=== PATIENT | female | born 1955 | race Two or more races ===

== ENCOUNTER 2024-01-20 08:46 | Emergency (ER) | payer OTHER ==
[~2024-01-20] VITALS: Ht 160 cm; Wt 81.6 kg
[~2024-01-20 08:46] MED LIST: LEVAQUIN750 MG PO; TESSALON PERLE100 M1 PO
[2024-01-20] MEDS ORDERED: ATACAND16 MG PO (09:26)
[2024-01-20] MEDS ORDERED: SINGULAIR 5MG5 MG PO (09:26)
[2024-01-20] MEDS ORDERED: CLARITIN10 M1 PO (09:27)
[2024-01-20] MEDS ORDERED: ONDANSETRON HCL 2 MG/ML VIAL IV STA (09:59)
[2024-01-20] MEDS ORDERED: MECLIZINE HCL 25 MG TABLET PO STA (10:00)
[2024-01-20 11:05] LABS: HEMATOCRIT 43.1 % (36.0-45.00); HEMOGLOBIN 14.4 g/dL (12.0-15.00); MEAN CELL VOLUME 90.1 fL (80.00-100.00); MEAN CORPUSCULAR HEMOGLOBIN 30.2 pg (27.00-32.0); MEAN CORPUSCULAR HGB CONC 33.5 g/dl (32.0-36.0); PLATELET COUNT 212 K/uL (150-450); RED BLOOD COUNT 4.78 M/uL (4.00-6.00); RED CELL DISTRIBUTION WIDTH 15.2 % (11.5-14.5)
[2024-01-20 11:19] LABS: CALCIUM 9.4 mg/dL (8.5-10.1); CREATININE SERUM 0.78 mg/dL (0.55-1.02); GFR 73.01; POTASSIUM 3.88 mEq/L (3.5-5.1)
== END 2024-01-20 12:05 | disposition home or self-care (01) ==
LOC: ER 08:46
PROVIDERS: General Practice
DX: R42 Dizziness and giddiness (principal); I10 Essential (primary) hypertension; Z86.16 Personal history of COVID-19
CPT/HCPCS: 36415; 70450; 96365; 99284; J2405

== ENCOUNTER 2024-10-31 18:48 | Inpatient (IN) | payer OTHER ==
[~2024-10-31] VITALS: Ht 160 cm; Wt 81.6 kg
[~2024-10-31 18:48] MED LIST changes: +ATACAND16 MG PO; +CLARITIN10 M1 PO; +SINGULAIR 5MG5 MG PO
--- NOTE | 2024-10-31 19:01 | NUR ---
SE RECIBE PTE FEMENINA ALERTA Y ORIENTADA X3 REFIERE VOMITOS X8, NAUSEAS, ESCALOFRIOS Y SUDORACION LUEGO DE INGERIR JACQUELINE TOSTADA CON TOMATE DE VARIOS HAGER. SE MARGUERITE S/V Y SE UBICA.
[2024-10-31] MEDS ORDERED: HYOSCYAMINE SULFATE 0.125 MG TAB.SUBL SL ONE (19:45)
[2024-10-31] MEDS ORDERED: 0.9 % SODIUM CHLORIDE 1,000 ML IV ONE (19:45)
[2024-10-31] MEDS ORDERED: ONDANSETRON HCL 2 MG/ML VIAL IV ONE (19:45)
[2024-10-31] MEDS ORDERED: FAMOtidine 10 MG/ML (4ML VIAL) IV PUSH ONE (19:45)
--- NOTE | 2024-10-31 20:14 | NUR ---
PTE ALERTA Y ORIENTADA X3 ES EVALUADA POR EL DR. JUNG. SE ORIENTA SOBRE TRATAMIENTO, VERBALIZA ENTENDER. SE CANALIZA, SE COLECTAN MUESTRAS DE LAB Y SE ADMINISTRA MEDICAMENTO WOLF ORDEN MEDICA BAJO MEDIDAS ASEPTICAS.
[2024-10-31 20:37] LABS: HEMATOCRIT 46.9 % (36.0-45.00); HEMOGLOBIN 15.6 g/dL (12.0-15.00); MEAN CELL VOLUME 90.2 fL (80.00-100.00); MEAN CORPUSCULAR HEMOGLOBIN 30.1 pg (27.00-32.0); MEAN CORPUSCULAR HGB CONC 33.4 g/dl (32.0-36.0); PLATELET COUNT 249 K/uL (150-450); RED CELL DISTRIBUTION WIDTH 15.6 % (11.5-14.5)
[2024-10-31 20:39] LABS: ALBUMIN 3.7 gm/dL (3.4-5.0); BILIRUBIN TOTAL 1.37 mg/dL (0.3-1.2); CALCIUM 9.4 mg/dL (8.5-10.1); CREATININE SERUM 0.82 mg/dL (0.55-1.02); GFR 68.92; GLOBULINA 4.1 G/DL (2.4-3.5); POTASSIUM 4.32 mEq/L (3.5-5.1); TOTAL PROTEIN 7.8 gm/dL (6.4-8.2)
--- NOTE | 2024-10-31 23:16 | NUR ---
PACIENTE ALERTA Y ORIENTADA X3. SE MANTIENE EN CAMA A NIVEL DE PISO JUNTO CON BARRANDAS ELEVADAS. PENDIENTE A RESULTADOS DE SONOGRAMA Y PENDIENTE A REALIZAR CT.
[2024-10-31] MEDS ORDERED: PIPERACILLIN/TAZOBACTAM SODIUM 3.375 GM VIAL IV ONE (23:45)
--- NOTE | 2024-10-31 23:50 | NUR ---
PENDIENTE A CONSULTA CON DR. UNDERWOOD DE MEDICINA INTERNA.
[2024-11-01] MEDS ORDERED: ONDANSETRON HCL 4 MG in 0.9 % SODIUM CHLORIDE 50 ML IV PRN (00:15)
[2024-11-01] MEDS ORDERED: 0.9 % SODIUM CHLORIDE 1,000 ML IV SCH (00:15)
[2024-11-01] MEDS ORDERED: MORPHINE SULFATE 4 MG/ML CARTRIDGE IV PRN (00:15)
[2024-11-01] MEDS ORDERED: PIPERACILLIN/TAZOBACTAM SODIUM 3.375 GM in DEXTROSE 5 % IN WATER 100 ML IV SCH (06:00)
[2024-11-01 08:00] VITALS: BP 110/64; O2SAT 95
[2024-11-01] MEDS ORDERED: LORazepam 1 MG TABLET PO NR (08:00)
[2024-11-01 08:41] LABS: URINE APPEARANCE Clear; URINE BILIRRUBIN Negative (NEGATIVE); URINE BLOOD Negative; URINE COLOR Dark Yellow; URINE GLUCOSE Negative (NEGATIVE); URINE KETONE 15 (NEGATIVE); URINE LEUKOCYTE Trace; URINE NITRATE Negative; URINE PROTEIN 30 (NEGATIVE)
[2024-11-01 08:55] LABS: URINE BACTERIA 260.1 uL (0.0-1933); URINE EPITHELIAL CELLS 51.2 uL (0.0-38.8); URINE RBC 8.9 uL (0.0-20.8); URINE WBC 200.9 uL (0.0-23.2)
[2024-11-01] MEDS ORDERED: CANDESARTAN CILEXETIL 16 MG TABLET PO SCH (09:00)
[2024-11-01] MEDS ORDERED: FAMOTIDINE/PF 20 MG in 0.9 % SODIUM CHLORIDE 8 ML IV PUSH SCH (09:00)
[2024-11-01 16:00] VITALS: BP 125/65; O2SAT 95
[2024-11-01] MEDS ORDERED: PIPERACILLIN/TAZOBACTAM SODIUM 4.5 GM in 0.9 % SODIUM CHLORIDE 100 ML IV SCH (18:00)
[2024-11-02 00:10] VITALS: BP 126/62; O2SAT 100
[2024-11-02 07:04] LABS: HEMATOCRIT 46.9 % (36.0-45.00); MEAN CELL VOLUME 90.3 fL (80.00-100.00); MEAN CORPUSCULAR HEMOGLOBIN 30.8 pg (27.00-32.0); MEAN CORPUSCULAR HGB CONC 34.1 g/dl (32.0-36.0); PLATELET COUNT 257 K/uL (150-450); RED BLOOD COUNT 5.19 M/uL (4.00-6.00); RED CELL DISTRIBUTION WIDTH 15.8 % (11.5-14.5)
[2024-11-02 07:10] LABS: INR 1.34; PARTIAL THROMBOPLASTIN TIME 26.4 SECONDS (22.0-34.0); PROTHROMBIN TIME 14.3 SECONDS (9.0-11.5)
[2024-11-02 07:36] LABS: BILIRUBIN TOTAL 1.54 mg/dL (0.3-1.2); BILIRUBIN,CONJUGATED 0.66 mg/dL (0.0-0.2); BILIRUBIN,UNCONJUGATED 0.88 mg/dL (0.0-0.6); TOTAL PROTEIN 6.2 gm/dL (6.4-8.2)
[2024-11-02 08:00] VITALS: BP 112/63; O2SAT 95
[2024-11-02 08:30] LABS: CHOL HDL RATIO 3.1 (0-5.0)
[2024-11-02 08:34] LABS: C-REACTIVE PROTEIN 10.2 MG/DL (0.00-0.29)
[2024-11-02] MEDS ORDERED: MORPHINE SULFATE 4 MG/ML CARTRIDGE IV PRN (10:52)
[2024-11-02 16:00] VITALS: BP 125/68; O2SAT 95
[2024-11-03 00:10] VITALS: BP 136/77; O2SAT 96
[2024-11-03 07:46] LABS: HEMATOCRIT 40.1 % (36.0-45.00); HEMOGLOBIN 13.4 g/dL (12.0-15.00); MEAN CELL VOLUME 90.6 fL (80.00-100.00); MEAN CORPUSCULAR HEMOGLOBIN 30.3 pg (27.00-32.0); MEAN CORPUSCULAR HGB CONC 33.5 g/dl (32.0-36.0); PLATELET COUNT 220 K/uL (150-450); RED BLOOD COUNT 4.43 M/uL (4.00-6.00); RED CELL DISTRIBUTION WIDTH 15.6 % (11.5-14.5)
[2024-11-03 08:00] VITALS: BP 145/78; O2SAT 94
[2024-11-03 08:40] LABS: ALBUMIN 2.7 gm/dL (3.4-5.0); BILIRUBIN TOTAL 1.02 mg/dL (0.3-1.2); CREATININE SERUM 0.58 mg/dL (0.55-1.02); GFR 102.77; POTASSIUM 3.85 mEq/L (3.5-5.1); TOTAL PROTEIN 5.7 gm/dL (6.4-8.2)
[2024-11-03 12:47] LABS: AMYLASE 165 U/L (25-115)
[2024-11-03 12:59] LABS: LIPASE 107 U/L (13-75)
[2024-11-03] MEDS ORDERED: MEPERIDINE HCL/PF 25 MG/ML VIAL IM PRN (16:45)
[2024-11-03 16:57] VITALS: BP 138/65; O2SAT 95
[2024-11-03] MEDS ORDERED: MEROPENEM 500 MG/VIAL VIAL IV SCH (18:00)
[2024-11-03 18:16] LABS: PH,URINE 5.5 (5.0-8.0); URINE APPEARANCE Clear; URINE BILIRRUBIN Negative (NEGATIVE); URINE BLOOD NHT; URINE COLOR Dark Yellow; URINE GLUCOSE Negative (NEGATIVE); URINE LEUKOCYTE Negative; URINE NITRATE Negative; URINE PROTEIN 30 (NEGATIVE)
[2024-11-03 18:17] LABS: URINE BACTERIA 51.3 uL (0.0-1933); URINE RBC 31.5 uL (0.0-20.8); URINE WBC 14.4 uL (0.0-23.2)
[2024-11-03 18:51] LABS: URINE CAST 0.44 uL (0.0-1.40); URINE KETONE 80 (NEGATIVE)
[2024-11-03] MEDS ORDERED: TEMAZEPAM 15 MG CAPSULE PO SCH (21:00)
[2024-11-03 23:56] VITALS: BP 131/81; O2SAT 97
[2024-11-04 07:26] LABS: HEMATOCRIT 38.6 % (36.0-45.00); HEMOGLOBIN 12.7 g/dL (12.0-15.00); MEAN CELL VOLUME 90.8 fL (80.00-100.00); MEAN CORPUSCULAR HEMOGLOBIN 29.8 pg (27.00-32.0); MEAN CORPUSCULAR HGB CONC 32.8 g/dl (32.0-36.0); PLATELET COUNT 225 K/uL (150-450); RED BLOOD COUNT 4.26 M/uL (4.00-6.00); RED CELL DISTRIBUTION WIDTH 14.9 % (11.5-14.5)
[2024-11-04 07:48] LABS: ALBUMIN 2.5 gm/dL (3.4-5.0); BILIRUBIN TOTAL 0.92 mg/dL (0.3-1.2); CREATININE SERUM 0.42 mg/dL (0.55-1.02); GFR 149.16; POTASSIUM 3.51 mEq/L (3.5-5.1); TOTAL PROTEIN 5.5 gm/dL (6.4-8.2)
[2024-11-04 09:05] VITALS: BP 110/67; O2SAT 95
[2024-11-04 19:20] VITALS: BP 150/79; O2SAT 94
[2024-11-05 00:09] VITALS: BP 143/80; O2SAT 95
[2024-11-05] MEDS ORDERED: GUAIFENESIN 200 MG/10 ML BLIST.PACK PO SCH (12:00)
[2024-11-05 12:45] LABS: HEMATOCRIT 40.9 % (36.0-45.00); HEMOGLOBIN 13.9 g/dL (12.0-15.00); MEAN CELL VOLUME 88.7 fL (80.00-100.00); MEAN CORPUSCULAR HEMOGLOBIN 30.2 pg (27.00-32.0); PLATELET COUNT 304 K/uL (150-450); RED BLOOD COUNT 4.61 M/uL (4.00-6.00); RED CELL DISTRIBUTION WIDTH 15.2 % (11.5-14.5)
[2024-11-05] MEDS ORDERED: IPRATROPIUM BROMIDE 0.5 MG/2.5 ML AMPUL.NEB IH SCH (13:00)
[2024-11-05 13:38] LABS: ALBUMIN 2.4 gm/dL (3.4-5.0); BILIRUBIN TOTAL 0.98 mg/dL (0.3-1.2); CREATININE SERUM 0.52 mg/dL (0.55-1.02); GFR 116.58; GLOBULINA 3.1 G/DL (2.4-3.5); POTASSIUM 3.11 mEq/L (3.5-5.1); TOTAL PROTEIN 5.5 gm/dL (6.4-8.2)
[2024-11-05 17:00] VITALS: BP 106/56; O2SAT 96
[2024-11-06] VITALS: BP 123/78; O2SAT 94
[2024-11-06 11:46] VITALS: BP 135/69; O2SAT 95
[2024-11-06 16:00] VITALS: BP 128/69; O2SAT 94
[2024-11-06 23:57] VITALS: BP 133/57; O2SAT 97
[2024-11-07 08:00] VITALS: BP 105/66; O2SAT 97
== END 2024-11-07 12:30 | disposition home or self-care (01) | DRG 417 ==
LOC: ER 18:50 → SURG 11-01 00:58
PROVIDERS: General Practice; Internal Medicine; Internal Medicine Infectious Disease; ADMIT Internal Medicine; ATTEND Internal Medicine
PROC: 0FT44ZZ Resection of Gallbladder, Percutaneous Endoscopic Approach (ICD-10-PCS; principal; 2024-11-01)
PROC: BF37ZZZ Magnetic Resonance Imaging (MRI) of Pancreas (ICD-10-PCS; 2024-11-01)
DX: K80.70 Calculus of gallbladder and bile duct without cholecystitis without obstruction (principal); K85.10 Biliary acute pancreatitis without necrosis or infection; I10 Essential (primary) hypertension